=== PATIENT | female | born 1980 | race Asian ===

== ENCOUNTER 2018-07-15 17:23 | Emergency (ER) | payer MEDICAID ==
[~2018-07-15] VITALS: Ht 157.5 cm; Wt 47.6 kg
[2018-07-15 17:35] VITALS: BP 118/80; Ht 157.5 cm; Wt 47.6 kg
== END 2018-07-15 18:21 | disposition home or self-care (01) ==
LOC: ED 17:23
DX: N39.0 Urinary tract infection, site not specified (principal); Z88.8 Allergy status to other drugs, medicaments and biological substances